=== PATIENT | female | born 1980 | race Caucasian/White ===

== ENCOUNTER 2024-07-09 22:31 | Emergency (ER) | payer OTHER ==
[~2024-07-09] VITALS: Ht 167.6 cm; Wt 71.2 kg
[2024-07-09 22:38] VITALS: O2SAT 100
[2024-07-10] MEDS ORDERED: NAPR-1176 MT (01:01)
[2024-07-10 01:43] VITALS: BP 138/67; PULSE 82; RESP 16; TEMP 36.89184; O2SAT 100
== END 2024-07-10 01:44 | disposition home or self-care (01) ==
LOC: ER 22:31
DX: M79.674 Pain in right toe(s) (principal); Z79.1 Long term (current) use of non-steroidal anti-inflammatories (NSAID)
CPT/HCPCS: 73630; 99283